=== PATIENT | male | born 1960 | race Caucasian/White ===

== ENCOUNTER → 2018-05-19 | Day surgery (SDC) | payer OTHER ==
[~2018-05-19] MED LIST: ASPIRIN 81 MG CHEWABLE TAB PO SCH; ATROPINE SULFATE 1 MG/10 ML SYR ONE; BUPIVACAINE 0.75% 10 ML SDV ONE; HEPARIN 10,000 UNIT/10 ML MDV (1,000 UNIT/ML) ONE; ISOPROTERENOL HCL/D5W 0.2 MG/50 ML BAG IV ONE; LIDOCAINE 1% 300 MG/30 ML SDV ONE; NS 1,000 ML IV ONE
[2018-05-19 07:47] LABS: PLATELET COUNT 210 10^3/uL (150-400)
[2018-05-19 07:55] LABS: INR 0.9 (0.83-1.16); PROTIME(PATIENT) 12.4 SEC (12.0-15.0)
--- NOTE | 2018-05-19 08:43 | PDPROPOC ---
Sedation Plan of Care Sedation Plan of Care: vital signs stable, mental status noted, patient educated of risks, benefits, alternatives, patient can tolerate sedation ASA Classification: ASA 1 Planned drugs: fentanyl, midazolam Mallampati Score: Class 1 Mallampati Reference Image: Patient passed 3-3-2 rule?: Yes
--- NOTE | 2018-05-19 08:43 | PDGENHP ---
History & Physical Chief Complaint: palpitations History of Present Illness: sx with elevated hr occured yesterday again with cross country skiing Relevant Physical Exam: s1s2 rrr cta ao3 Cardiorespiratory Assessment: for eps. 1. if at - ablation. 2. if noninducible - cont diltiazem. 3. if afib - consider aad
--- NOTE | 2018-05-19 11:31 | EPPROC ---
Electrophysiology Procedure Note: DIAGNOSTIC ELECTROPHYSIOLOGIC STUDY Procedures performed: 1. Fluoroscopy 2. EP evaluation with RA/RV/LA pace/record, with arrhythmia induction 3. EP evaluation with RA/RV pace record, insert/reposition catheter, with arrhythmia induction 4. Programmed stimulation + pacing after IV drug INDICATION: Palpitations PROCEDURE: Catheters & Anesthesia: The patient arrived in the Electrophysiology Laboratory in the fasting state. The right clavicular region, right groin, & left groin area were prepped & draped in the usual sterile manner. Procedure was done with patient fully awake. Appropriate non-invasive blood pressure, pulse oximetry & end-tidal CO2 monitoring was established. All catheters were placed percutaneously using the modified Seldinger technique , and advanced into position under fluoroscopic guidance. Vascular ultrasound was used for access. 20 pole catheter in CS, 8 pole catheter at His bundle, Russel catheter in RAA. Programmed ventricular stimulation at multiple sites using standard protocol with and without isoproterenol did not induce any ventricular arrhythmias. Isoproternol up to 10 mcg/min and atropine 1 mg IV were administered. Programmed stimulation was performed from the right atrium, right ventricle and coronary sinus (left atrium). Heparin 5000 U was administered. Sustained atrial flutter and atrial fibrillation were induced on 3 occasions. No other arrhythmias were inducible. The catheters were removed. Vascular access sheaths were removed in the EP lab after placing subcutaneous pursestring suture. The patient was transferred to the cardiovascular holding area in stable condition. There were no apparent complications. SCL 1140 ms AH 70 ms HV 40 ms Antegrade WBB 450 ms Retrograde WBB 510 ms CONCLUSIONS 1. Normal sinus and AV node function. 2. No evidence of accessory AV pathway presence. 3. Atrial fibrillation and atrial flutter, not targeted for ablation at this time. 4. No apparent complications. Patient Problems: Problems Problem Status Onset Palpitations Acute
--- NOTE | 2018-05-20 06:08 | CPEKG ---
Test Reason : OPEN Blood Pressure : / mmHG Vent. Rate : 059 BPM Atrial Rate : 059 BPM P-R Int : 162 ms QRS Dur : 074 ms QT Int : 438 ms P-R-T Axes : -12 -42 013 degrees QTc Int : 434 ms Sinus rhythm Left anterior fascicular block Confirmed by Holger Beltran ([id number]) on 05/20/2018 6:08:10 AM Referred By: Confirmed By:Holger Beltran
== END | disposition home or self-care (01) ==
LOC: FCATH 07:13
PROVIDERS: ATTEND Internal Medicine Cardiovascular Disease
DX: R00.2 Palpitations (principal)
CPT/HCPCS: 93005; 93620; 93621; 93623; C1730; C1731; J0461; J1644